=== PATIENT | male | born 1975 | race Caucasian/White ===

== ENCOUNTER 2022-08-04 21:23 | Emergency (ER) | payer BC, SELFPAY ==
--- NOTE | ~2022-08-04 | XR_ITS ---
EXAM: XR shoulder LT min 2V DATE: 08/04/2022 22:08 HISTORY: trauma, RAN INTO WALL . COMPARISON: None available. FINDINGS: Normal mineralization. Comminuted fracture of the proximal left humerus, with mild displac ement of fracture fragments that involve the greater tuberosity. No lytic or blastic lesion. Moderate AC joint hypertrophy. No erosion or periosteal change. Soft tissues within normal limits. IMPRESSION: Comminuted, mildly displaced proximal left humeral fracture. Reviewed, dictated and finalized at location K.
[2022-08-04 21:28] VITALS: BP 109/58; PULSE 78; RESP 18; TEMP 36.4; O2SAT 100
[2022-08-04] MEDS: ACETAMINOPHEN 500 MG TABLET 1000 MG PO (22:21)
--- NOTE | 2022-08-04 22:48 | ED.UPPEXIN ---
HPI - Extremity Injury (Upper) General Chief Complaint: Extremity Injury, Upper Stated Complaint: shoulder Time Seen by Provider: 08/04/22 22:00 History of Present Illness HPI narrative: Patient was playing racquetball when he actually ran into the wall and crushed his left shoulder, he is endorsing pain to the shoulder, no focal numbness or weakness. Denies trauma anywhere else. Related Data Home Medications Medication Instructions Recorded Confirmed No Home Medications 07/03/21 07/03/21 Allergies Allergy/AdvReac Type Severity Reaction Status Date / Time No Known Allergies Allergy Verified 08/04/22 21:33 Review of Systems Review of Systems: M/S: left shoulder pain SKIN: bruise to right upper arm NEURO: [No headache or focal numbness or weakness] PMFSH Family History Family History Father Hypertension Mother Family history of malignant neoplasm of breast in first degree relative Other Family history of heart disease in male family member before age 55 Social History Social History Smoking status: Never smoker Second hand tobacco smoke exposure: No Alcohol intake: current Substance use: never Substance use type: does not use Gender identity (if verbalized by the patient): Male Sexual Orientation (if Verbalized by the Patient): Straight or Heterosexual Exam Narrative: EXAMINATION OF ORGAN SYSTEMS/BODY AREAS: Constitutional: Vital signs per nursing GENERAL: Appears slightly uncomfortable in wheelchair HEAD: Normal with no signs of head trauma. EYES: EOMI, conjunctiva normal ENT: Hearing grossly intact LUNGS: Nonlabored breathing. HEART: [Regular rate and rhythm] EXT: Tenderness/ecchymosis to upper humerus; normal radial pulses SKIN: Ecchymosis upper humerus NEURO: [Alert and oriented x 3. No gross focal sensory or strength deficits; able to move at wrist/elbow without any tenderness. ] PSYCH: Normal affect Course Vital Signs Vital signs: Vital Signs Temperature 97.5 F L 08/04/22 21:28 Pulse Rate 78 08/04/22 21:28 Respiratory Rate 18 08/04/22 21:28 Blood Pressure 109/58 L 08/04/22 21:28 Pulse Oximetry 100 08/04/22 21:28 Oxygen Delivery Room Air 08/04/22 21:28 Temperature 97.5 F L 08/04/22 21:28 Pulse Rate 78 08/04/22 21:28 Respiratory Rate 18 08/04/22 21:28 Blood Pressure 109/58 L 08/04/22 21:28 Pulse Oximetry 100 08/04/22 21:28 Oxygen Delivery Room Air 08/04/22 21:28 MDM - Extremity Injury (Upper) MDM Narrative Medical decision making narrative: 47-year-old male presenting with trauma to his left shoulder, vital signs stable here, I am concerned for possible humerus fracture versus less likely dislocation given his exam; is neurovascularly intact with tenderness and swelling of the proximal humerus. X-ray does confirm comminuted proximal humerus fracture, patient is placed in a sling, he declined any narcotic medication and states all he wants is Tylenol and Motrin, he is given return precautions, and follow-up to orthopedics. Discharge Plan Discharge Clinical Impression: Fracture of humerus Patient Disposition: Home, Self-Care Condition: Stable Instructions: Antibiotic Form, Arm Fracture in Adults (ED), How to Use a Sling (ED) Additional Instructions: Please keep your arm in the sling; call the orthopedic surgery today to schedule an appointment. You can always return to the ER if you have any worsening symptoms, any new numbness/weakness/coldness in your arm. You can take 1000mg of Tylenol every 6 hours and 600mg of ibuprofen every 6 hours; you can also use ice. Prescriptions: No Action No Home Medications Follow-up/Referrals: Damian North MD [Primary Care Provider] - Jae Jordan MD [Physician] - 2 Days
== END 2022-08-04 22:59 | disposition home or self-care (01) ==
LOC: ANHED 22:39
PROVIDERS: Emergency Provider Emergency Medicine; PCP Family Medicine
DX: S42.252A Displaced fracture of greater tuberosity of left humerus, initial encounter for closed fracture (principal); W22.01XA Walked into wall, initial encounter; Y93.73 Activity, racquet and hand sports
CPT/HCPCS: 73030; 99284; A4565; A9270

== ENCOUNTER 2024-07-12 18:09 | Emergency (ER) | payer BC, SELFPAY ==
--- NOTE | ~2024-07-12 | XR_ITS ---
XR finger 4th LT min 2V Ordering provider: Silvana Cook NP History: . pain, injury to 4th digit dip . Comparison: None. FINDINGS: BONES: No acute fracture or dislocation. Bony fragment is seen opposite the distal metaphysis of the middle phalanx posteriorly which may be an avulsion fracture from the base of the distal phalanx. For eign body is less likely. JOINT SPACES: Slight narrowing of the proximal and distal interphalangeal joints. SOFT TISSUES: Soft tissue swelling opposite the proximal interphalangeal joint. IMPRESSION: Possible avulsion fracture seen opposite the distal metaphysis of the middle phalanx of the left four th finger. Foreign body is less likely. Clinical correlation advised. Reviewed, dictated and finalized at location A. IMPRESSION: Possible avulsion fracture seen opposite the distal metaphysis of the middle ph alanx of the left fourth finger. Foreign body is less likely. Clinical correlat ion advised.
[2024-07-12 18:34] VITALS: BP 131/75; PULSE 54; RESP 16; TEMP 36.3; O2SAT 100
--- NOTE | 2024-07-12 18:52 | ED.UPPEXIN ---
HPI - Extremity Injury (Upper) General Chief Complaint: Extremity Injury, Upper Stated Complaint: finger injury Source: patient, RN notes reviewed and old records reviewed Mode of arrival: ambulatory Limitations: no limitations History of Present Illness HPI narrative: 49 year old male who presents to [facility] with complaints of injury to his left ring finger after playing volleyball last p.m. and being hit by the volleyball on his finger tips and jamming finger down. Patient is having pain with obvious swelling and ecchymosis to the mid aspect of his left 4th finger unable to fully extend distal aspect of his distal left ring finger. Patient has strong left radial pulse. MD complaint: injury to: left and finger (ring finger) Onset (ago): day(s) (last night) Other injuries: none Handedness: right Severity scale (1-10): 3 Treatments prior to arrival: cold therapy Related Data Home Medications Medication Instructions Recorded Confirmed omega-3 fatty acids [Fish Oil] PO 08/05/22 02/12/24 Allergies Allergy/AdvReac Type Severity Reaction Status Date / Time No Known Allergies Allergy Verified 02/12/24 09:55 Review of Systems Review of Systems: CONSTITUTIONAL: Denies fever, chills, or sweats. EYES: Denies visual changes, redness, or discharge. ENT: Denies rhinorrhea, congestion, sore throat, or otalgia. CARDIOVASCULAR: Denies chest pain, palpitations, or edema. RESPIRATORY: Denies cough or dyspnea. GASTROINTESTINAL: Denies abdominal pain, nausea, vomiting, or diarrhea. GENITOURINARY: Denies dysuria or hematuria. SKIN: Denies rash or itching. MUSCULOSKELETAL: Denies back pain,positive for left ring finger pain swelling and ecchymosis, or myalgia. NEUROLOGIC: Denies headache, numbness, or weakness. PSYCHIATRIC: Denies anxiety or depression. All systems reviewed & are unremarkable except as noted in HPI and below PMFSH Past Medical History Medical History Closed fracture of left proximal humerus Surgical History Surgical History H/O wrist surgery 1997 in [place]. History of knee surgery ACL/Meniscus in 1996 in [place]. Family History Family History Father Hypertension Mother Family history of malignant neoplasm of breast in first degree relative Other Family history of heart disease in male family member before age 55 Social History Social History Smoking status: Never smoker Second hand tobacco smoke exposure: No Alcohol intake: never Substance use: never Substance use type: does not use Current Housing: Decline to Answer Concerned About Future Housing: Decline to Answer Difficulty Paying Gas/Electric Bills: Decline to Answer Difficulty Paying for Meds: Decline to Answer Currently Unemployed: Decline to Answer Education: Decline to Answer Difficulty w/ Childcare or Family Care: Decline to Answer Living arrangements: with family Occupation/Education: occupation Gender identity (if verbalized by the patient): Male Sexual Orientation (if Verbalized by the Patient): Straight or Heterosexual Comments At time of signature, agree with nursing past medical, surgical, social and family history. There is no relevant family history pertinent to the presenting complaint Exam Narrative: GENERAL: Well-appearing, well-nourished, and in no acute distress. HEAD: Normocephalic, atraumatic. EYES: PERRLA and EOMI. ENT: Nares clear, no rhinorrhea or epistaxis. Mucous membranes moist. NECK: Supple. no lymphadenopathy CHEST: Clear to auscultation. No respiratory distress. HEART: Regular rate and rhythm. No murmur heard. Normal peripheral pulses. ABDOMEN: Soft, nontender, nondistended, normal active bowel sounds. EXTREMITIES: Normal range of motion. No edema.E
== END 2024-07-12 20:16 | disposition home or self-care (01) ==
PROVIDERS: Emergency Provider Registered Nurse; PCP Family Medicine
DX: S62.625A Displaced fracture of middle phalanx of left ring finger, initial encounter for closed fracture (principal); W21.06XA Struck by volleyball, initial encounter; Y93.68 Activity, volleyball (beach) (court)
CPT/HCPCS: 29130; 73140; 99214; G0463

== ENCOUNTER 2025-04-25 01:35 | Emergency (ER) | payer BC, SELFPAY ==
[2025-04-25 01:36] VITALS: BP 134/72; PULSE 55; RESP 18; TEMP 36.4; O2SAT 100
--- OUTSIDE RECORDS SUMMARY | 2025-04-25 01:37 | XMS_ITS | Clinical Summary ---
Author Organization [facility] [employer] Address [address] [place] [address] Care Team Providers Care Lockstitch Waistline Joiner Name Role Phone Unavailable Primary Care Provider Unavailabl e Source Comments [facility],non-owned Affiliates and Associated Physician Practices is amultiple site organization consisting of ambulatory clinics and hospital sitesin [place], [place], [place] and [place]. This disclosure is being madepursuant to the Care Everywhere program and may not contain all information available regarding this patient. Last updated 18.[facility] [employer] Allergies No known active allergies Immunizations Immunization Administration Dates Next Due INFLUENZA VACCINE, QUADR. (F LUZONE; FLULAVAL; FLUARIX; AFLURIA QUADRIVALENT; 6MO+), 0.5 ML (IIV4) 06/19/2020 TDAP (7yrs+) 06/19/2020 Social History Tobacco Use Types Packs/Day Years Used Date Smoking Tobacco: Never Assessed Sex and Gender Information Value Date Recorded Sex Assigned at Not on file Legal Sex Male 10:12 AM CDT Gender Identity Not on file Sexual Orientation Not on file Plan of Treatment Health Maintenance Due Date Last Done Comments COLOGUARD (AGES 45-75) - COL ON CA SCREENING 1975 COLON MONITORING 1975 COLONOSCOPY - COLON CA SCREENING 1975 CT COLONOGRAPHY - COLON CA SCREENING 1975 Colorectal Cancer Screening 1975 FIT - COLON CA SCREENING 1975 FLEX SIG - COLON CA SCREENING 1975 LIPID TESTING 1975 HIV SCREENING 1990 HEPATITIS C SCREENING 01/31/1993 HEPATITIS B VACCINE (1 of 3 - 19+ 3-dose series) 1994 COVID-19 VACCINE ( - 2023-2 5 season) 2024 DEPRESSION SCREENING 10/05/2024 PNEUMOCOCCAL VACCINE 50+ (1 of 1 - PCV) 2025 ZOSTER VACCINE (1 of 2) 2025 INFLUENZA VACCINE (#1) 2025 06/19/2020 DTAP/TDAP/TD VACCINES (2 - T d or Tdap) 06/19/2030 06/19/2020 HIB VACCINE Aged Out No longer eligi ble based on patient's age to complete this topic HPV VACCINE Aged Out No longer eligi ble based on patient's age to complete this topic MENINGOCOCCAL (Group B) VACC INE SHARED DECISION-MAKING Aged Out No longer eligibl e based on patient's age to complete this topic MENINGOCOCCAL GROUPS A/C/Y/W VACCINE Aged Out No longer eligible b ased on patient's age to complete this topic Insurance [facility]
[2025-04-25 01:44] VITALS: BP 125/81; PULSE 50; RESP 18; O2SAT 100
--- NOTE | 2025-04-25 02:06 | ED_ITS ---
HPI - Eye Problem General Chief complaint: Eye Problems Stated complaint: left eye problems Time Seen by Provider: 04/25/25 01:42 Source: patient Mode of arrival: ambulatory Limitations: no limitations History of Present Illness HPI Narrative: This is a 50 year old male that presents to the ER for injury to the left eye. Reports he was picking peaches and accidentally poked himself in the left eye with a stick. Reports tearing, feelings of foreign body. Reports he wears glasses occasionally. Related Data Home Medications ?Medication ?Instructions ?Recorded ?Confirmed ?Last Taken ?Type omega-3 fatty acids [Fish Oil] PO 08/05/22 02/17/25 Unknown History Allergies Allergy/AdvReac Type Severity Reaction Status Date / Time No Known Allergies Allergy Verified 02/17/25 08:03 Review of Systems Review of Systems: All systems reviewed & are unremarkable except as noted in HPI and below PMFSH Past Medical History Medical History Closed fracture of left proximal humerus Surgical History Surgical History H/O wrist surgery 1997 in [place]. History of knee surgery ACL/Meniscus in 1996 in [place]. Family History Family History Father Hypertension Mother Family history of malignant neoplasm of breast in first degree relative Other Family history of heart disease in male family member before age 55 Social History Social History Smoking status: Never smoker Second hand tobacco smoke exposure: No Alcohol intake: never Substance use: never Substance use type: does not use Current Housing: Decline to Answer Concerned About Future Housing: Decline to Answer Difficulty Paying Gas/Electric Bills: Decline to Answer Difficulty Paying for Meds: Decline to Answer Currently Unemployed: Decline to Answer Education: Decline to Answer Difficulty w/ Childcare or Family Care: Decline to Answer Living arrangements: with family Occupation/Education: occupation Gender identity (if verbalized by the patient): Male Sexual Orientation (if Verbalized by the Patient): Straight or Heterosexual Exam Narrative: GENERAL: Well-appearing, well-nourished, and in no acute distress. HEAD: Normocephalic, atraumatic. EYES: PERRLA and EOMI. Left eye with conjunctival injection, tearing. Fluorescein stain uptake with small corneal abrasion noted EXTREMITIES: Normal range of motion. No edema. SKIN: Warm, dry, no rash. NEURO: No focal deficits. Alert and oriented x3. PSYCH: Normal mood and affect Course Vital Signs Vital signs: Vital Signs Temperature 97.6 F 04/25/25 01:36 Pulse Rate 55 L 04/25/25 01:36 Respiratory Rate 18 04/25/25 01:36 Blood Pressure 134/72 04/25/25 01:36 Pulse Oximetry 100 04/25/25 01:36 Oxygen Delivery Room Air 04/25/25 01:36 Temperature 97.6 F 04/25/25 01:36 Pulse Rate 50 L 04/25/25 01:44 Respiratory Rate 18 04/25/25 01:44 Blood Pressure 125/81 04/25/25 01:44 Pulse Oximetry 100 04/25/25 01:44 Oxygen Delivery Room Air 04/25/25 01:44 MDM - Eye Problem MDM Narrative Medical decision making narrative: Patient presents to the ER for scratch injury to the left eye. Corneal abrasion noted. Patient will be started on topical antibiotics. Instructed to follow up with his eye doctor Differential Diagnosis Differential diagnosis: Likely corneal abrasion and conjunctivitis Critical Care Time Critical Care Time Critical Care Time: No Discharge Plan Discharge Clinical Impression: Corneal abrasion Qualifiers: Encounter type: initial encounter Laterality: left Qualified Code(s): S05.02XA - Injury of conjunctiva and corneal abrasion without foreign body, left eye, initial encounter Patient Disposition: Home Condition: Stable Instructions: Antibiotic Form, Corneal Abrasion (ED) Additional Instructions: Return to the emergency department if you experience fever, vision changes, redness and swelling around your eye, or any other symptoms that are concerning to you. Apply antibiotic drops as prescribed Follow up with your eye doctor Patient Language: Uzbek Prescriptions: New ofloxacin 0.3 % drops 1 drp LEFT EYE QID 5 Days Qty: 10 0RF No Action omega-3 fatty acids [Fish Oil] PO Patient Comments: 2.2 mg Follow-up/Referrals: Damian North MD [Primary Care Provider] -
--- OUTSIDE RECORDS SUMMARY | 2025-04-25 02:19 | XMS_ITS | Clinical Summary ---
Author Organization [facility] [employer] Address [address] [place] [address] Care Team Providers Care Core Man Name Role Phone Unavailable Primary Care Provider Unavailabl e Source Comments [facility],non-owned Affiliates and Associated Physician Practices is amultiple site organization consisting of ambulatory clinics and hospital sitesin [place], [place], [place] and [place]. This disclosure is being madepursuant to the Care Everywhere program and may not contain all information available regarding this patient. Last updated 18.[facility] [employer] Allergies No known active allergies Immunizations Immunization [...] patient's age to complete this topic Insurance [facility]
[2025-04-25] MEDS: FLUORESCEIN SOD 1 MG/STRIP LEFT EYE (02:53)
[2025-04-25] MEDS: TETRACAINE HCL 0.5% OPHTH SOLN 4 ML BTL 1 DROP EACH EYE (02:54)
[2025-04-25 02:56] VITALS: BP 139/75; PULSE 50; RESP 18; O2SAT 100
== END 2025-04-25 02:57 | disposition home or self-care (01) ==
LOC: ANHED 02:17
PROVIDERS: Emergency Provider Physician Assistant; PCP Family Medicine
DX: S05.02XA Injury of conjunctiva and corneal abrasion without foreign body, left eye, initial encounter (principal); W22.8XXA Striking against or struck by other objects, initial encounter
CPT/HCPCS: 99283

== ENCOUNTER 2025-08-28 02:18 | Day surgery (SDC) | payer BC, SELFPAY ==
[2025-08-09 09:11] VITALS: BMI 23.1
[2025-08-28 12:36] VITALS: BP 129/53; PULSE 58; RESP 18; TEMP 36.2; O2SAT 100
[2025-08-28] MEDS: LACTATED RINGERS 1,000 ML 150 ML IV CONT (12:50)
--- NOTE | 2025-08-28 13:02 | WPDANESEPPF ---
Anes - Initial Pre Proc Eval Procedure: Operation Date: 08/28/25 14:00 Proposed Procedures p Screening Colonoscopy - Dio Bush MD Date/Time: 08/28/25 13:02 Surgeon: Dio Bush MD Pre Op Diagnosis: Encounter for screening for malignant neoplasm of Patient Data Age: 50 Gender: M Height: 1.8 m Weight: 75 kg Last Vital Signs Temp 97.1 F L 08/28/25 12:36 Pulse 58 L 08/28/25 12:36 Resp 18 08/28/25 12:36 BP 129/53 L 08/28/25 12:36 Pulse Ox 100 08/28/25 12:36 O2 Del Method Room Air 08/28/25 12:36 Allergies Allergy/AdvReac Type Severity Reaction Status Date / Time No Known Allergies Allergy Verified 08/28/25 12:35 Home Medications ?Medication ?Instructions ?Recorded ?Confirmed ?Type omega-3 fatty acids 2 cap PO DAILY 08/05/22 08/09/25 History Patient hx anesthesia problems: none Family hx anesthesia problems: none Results Review: All pre-operative results and documents have been reviewed as part of the pre-operative evaluation. [facility] Past Medical History Medical History Closed fracture of left proximal humerus Surgical History Surgical History H/O wrist surgery 1997 in [place]. History of knee surgery ACL/Meniscus in 1996 in [place]. Family History Family History Father Hypertension Mother Family history of malignant neoplasm of breast in first degree relative Other Family history of heart disease in male family member before age 55 Social History Social History Smoking status: Never smoker Second hand tobacco smoke exposure: No Alcohol intake: never Substance use: never Substance use type: does not use Current Housing: Decline to Answer Concerned About Future Housing: Decline to Answer Difficulty Paying Gas/Electric Bills: Decline to Answer Difficulty Paying for Meds: Decline to Answer Currently Unemployed: Decline to Answer Education: Decline to Answer Difficulty w/ Childcare or Family Care: Decline to Answer Living arrangements: with family Occupation/Education: occupation Gender identity (if verbalized by the patient): Male Sexual Orientation (if Verbalized by the Patient): Straight or Heterosexual Spiritual care concerns: No Anes - Eval Final PreProcedure Day of Procedure 08/28/25 13:02 Patient weight: normal and thin Lungs: normal air movement Airway: Mallampati scale class II Neurological: alert and oriented Last oral intake: >/= 8 hours ASA classification: I Emergent: no Anesthetic plan: proceed Anesthesia type and monitoring: general GIVS and standard monitoring Results Review: All pre-operative results and documents have been reviewed as part of the pre-operative evaluation. Healthy, active playing racqueRichard Pauer - 3P prior to breaking his shoulder, no cp or sob. Informed Consent: The patient's anesthetic plan and its attendant risks and benefits were discussed with the patient/family/POA. Questions were solicited and answers provided to the satisfaction of the patient/family/POA.
--- NOTE | 2025-08-28 13:19 | PM.IMHP ---
H&P: HPI History of Present Illness Date/Time: 08/28/25 13:19 Chief Complaint: Screening colonoscopy Narrative: This is the patient's first colonoscopy. There are no GI symptoms and there is no family history of colorectal cancer. Review of Systems Review of Systems: All systems reviewed & are unremarkable except as noted in HPI and below PMFSH Past Medical History Medical History Closed fracture of left proximal humerus Surgical History Surgical History H/O wrist surgery 1997 in [place]. History of knee surgery ACL/Meniscus in 1996 in [place]. Family History Family History Father Hypertension Mother Family history of malignant neoplasm of breast in first degree relative Other Family history of heart disease in male family member before age 55 Social History Social History Smoking status: Never smoker Second hand tobacco smoke exposure: No Alcohol intake: never Substance use: never Substance use type: does not use Current Housing: Decline to Answer Concerned About Future Housing: Decline to Answer Difficulty Paying Gas/Electric Bills: Decline to Answer Difficulty Paying for Meds: Decline to Answer Currently Unemployed: Decline to Answer Education: Decline to Answer Difficulty w/ Childcare or Family Care: Decline to Answer Living arrangements: with family Occupation/Education: occupation Gender identity (if verbalized by the patient): Male Sexual Orientation (if Verbalized by the Patient): Straight or Heterosexual Spiritual care concerns: No Meds Home Medications and Allergies Home Medications ?Medication ?Instructions ?Recorded ?Confirmed ?Type omega-3 fatty acids 2 cap PO DAILY 08/05/22 08/09/25 History Allergies Allergy/AdvReac Type Severity Reaction Status Date / Time No Known Allergies Allergy Verified 08/28/25 12:35 Vital Signs Vital Signs - 24 hr 08/28/25 12:36 Temperature 97.1 F L Pulse Rate 58 L Respiratory Rate 18 Blood Pressure 129/53 L Pulse Oximetry 100 Oxygen Delivery Room Air Exam Const: General: cooperative and healthy appearing Resp: Effort & Inspection: normal respiratory effort and able to speak in complete sentences Auscultation: clear to auscultation bilaterally Cardio: Rate: regular rate Rhythm: regular rhythm GI: Inspection: normal to inspection GI Palp: No No hepatosplenomegaly present Auscultation: normal bowel sounds Rectal Exam: deferred Skin: General skin exam: normal color Psych: Appearance: grossly normal Mental Status: mental status grossly normal Assessment and Plan Assessment and plan (1) Encounter for screening colonoscopy: Code(s): Z12.11 - Encounter for screening for malignant neoplasm of colon Status: Acute Assessment and Plan: The patient is deemed a good candidate for the procedure. Consent signed. Will proceed.
[2025-08-28 13:45] VITALS: BP 94/54; PULSE 56; RESP 14; O2SAT 100
[2025-08-28 13:55] VITALS: BP 89/49; PULSE 57; RESP 19; O2SAT 100
[2025-08-28 14:05] VITALS: BP 109/68; PULSE 56; RESP 23; O2SAT 100
== END 2025-08-28 14:12 | disposition home or self-care (01) ==
PROVIDERS: PCP Family Medicine; Visit Provider Internal Medicine Gastroenterology
PROC: 0DJD8ZZ Inspection of Lower Intestinal Tract, Via Natural or Artificial Opening Endoscopic (ICD-10-PCS; CPT 45378; principal; 2025-08-28 14:00)
DX: Z12.11 Encounter for screening for malignant neoplasm of colon (principal)
CPT/HCPCS: 45378; J2003; J2704; J7120